=== PATIENT | female | born 1990 | race Caucasian/White ===

== ENCOUNTER 2017-06-29 13:51 | Emergency (ER) | payer OTHER ==
[2017-06-29 14:27] VITALS: RESP 16; TEMP 98.4
--- NOTE | 2017-06-29 14:32 | EDPHY ---
H & P Stated Complaint: BIBA for fall skiing, L knee pain & instability Time Seen by Provider: 06/29/17 13:52 HPI/ROS: Chief Complaint: Knee injury scanning HPI: 27-year-old woman was skiing today when she twisted and felt a pop. She had onset of pain. She was able to get up and ski down the rest of the hill but has had persistent pain. No prior knee injuries. No other complaints. She was helmeted. No loss of consciousness. ROS: 10 point Review of Systems is negative except as noted in the HPI. PMH: Denies Social History: No smoking, no alcohol, no recreational drug use Family History: non-contributory Physical Exam: Gen: Awake, Alert, Airway Intact HEENT: Head: Atraumatic Eyes: PERRLA, EOMI Nose: No epistaxis Mouth: Normal dentition, Airway patent Face: No deformity Neck: non-tender, no stepoff, Full ROM without pain Pelvis: non-tender, stable to AP and Lateral compression Back: atraumatic, no midline tenderness Ext: Patient has tenderness along the medial collateral ligament and the proximal tibial head. No lateral tenderness. No patellar tenderness. She is able to flex past 90. She has no anterior drawer sign. She has 2+ dorsalis pedis pulses. Capillary refills less than 2 sec. Sensations intact., full ROM Skin: no rash Neuro: CN II-XII intact, Strength 5/5 in all extremities, sensation intact in all extremities - Personal History Current Tetanus/Diphtheria Vaccine: Yes Current Tetanus Diphtheria and Acellular Pertussis (TDAP): Yes Tetanus Vaccine Date: 2013 - Medical/Surgical History Hx Asthma: No Hx Chronic Respiratory Disease: No Hx Diabetes: No Hx Cardiac Disease: No Hx Renal Disease: No Hx Cirrhosis: No Hx Alcoholism: No Hx HIV/AIDS: No Hx Splenectomy or Spleen Trauma: No Other PMH: nasal fracture & surgery - Social History Smoking Status: Never smoked Constitutional: Initial Vital Signs Temperature (C) 36.9 C 06/29/17 14:21 Heart Rate 93 06/29/17 14:21 Respiratory Rate 16 06/29/17 14:21 Blood Pressure 116/84 H 06/29/17 14:21 O2 Sat (%) 99 06/29/17 14:21 O2 Delivery Mode Room Air Allergies/Adverse Reactions: No Known Allergies Allergy (Unverified 06/29/17 14:20) Home Medications: Medication Instructions Recorded Control 06/29/17 Medical Decision Making - Diagnostics Imaging Results: Imaging Impressions Knee X-Ray 06/29/17 14:05 Impression: Negative left knee radiographs. ED Course/Re-evaluation: X-rays negative. Symptoms consistent with strain. Will place in the immobilizer and crutches. Follow up with Orthopedics. Departure - Departure Disposition: Home, Routine, Self-Care Clinical Impression: Knee sprain Condition: Good Instructions: Knee Sprain (ED), Knee Immobilizer (ED), Crutch Instructions (ED) , R.I.C.E. Treatment (ED) Additional Instructions: May take ibuprofen, 600 mg 3 times a day. You may also take acetaminophen, 1000 mg every 6 hr, do not exceed 3000 mg a day. Follow up with Orthopedics in 3-4 days for further evaluation. Referrals: Kami Reyes MD [Medical Doctor] - As per Instructions
[2017-06-29 15:36] VITALS: BP 115/78; PULSE 63; O2SAT 97
== END 2017-06-29 15:36 | disposition home or self-care (01) ==
DX: S83.92XA Sprain of unspecified site of left knee, initial encounter (principal); V00.321A Fall from snow-skis, initial encounter; Y93.23 Activity, snow (alpine) (downhill) skiing, snowboarding, sledding, tobogganing and snow tubing
CPT/HCPCS: L1830